=== PATIENT | female | born 1960 | race African-American/Black ===

== ENCOUNTER 2019-10-10 13:11 | Emergency (ER) | payer OTHER | END 2019-10-10 14:04 | disposition left against medical advice (07) | LOC: ER 13:11 | DX: S01.552A Open bite of oral cavity, initial encounter (principal); Z53.21 Procedure and treatment not carried out due to patient leaving prior to being seen by health care provider; W61.01XA Bitten by parrot, initial encounter; Y93.89 Activity, other specified; Y92.89 Other specified places as the place of occurrence of the external cause; Y99.8 Other external cause status ==